=== PATIENT | male | born 1960 | race Two or more races ===

== ENCOUNTER 2022-03-13 17:24 | Inpatient (IN) | payer MEDICAID, OTHER ==
[~2022-03-13] VITALS: Ht 162.6 cm; Wt 68.0 kg
[2022-03-13 18:39] LABS: Basophils # (auto) 0 10 ^3/uL (0-0.2); Basophils % (auto) 0.5 % (0.0-2.0); Eosinophils # (auto) 0.4 10 ^3/uL (0-0.8); Eosinophils % (auto) 5.3 % (0.0-7.0); Hematocrit 37.1 % (41.0-53.0); Lymphocytes # (auto) 1.8 10 ^3/uL (0.4-5.4); Lymphocytes % (auto) 25.9 % (10.0-50.0); Mean Corpuscular Hemoglobin 27.6 pg (28.0-32.0); Mean Corpuscular Hgb Conc. 35.2 g/dL (32.0-36.0); Mean Corpuscular Volume 78.5 fL (80.0-100.0); Monocytes # (auto) 0.4 10 ^3/uL (0-1.3); Neutrophils # (auto) 4.4 10 ^3/uL (1.6-8.6); Neutrophils % (auto) 62.3 % (37.0-80.0); Nucleated Red Blood Cells % 0.1 %; Red Blood Cells 4.72 10^6/uL (4.5-5.90); White Blood Cell 7.1 10^3/uL (4.4-10.8)
[2022-03-13 18:55] LABS: Sodium 135 mmol/L (136-145)
[2022-03-13 19:08] LABS: Albumin 3.4 g/dL (3.4-5.0); Alkaline Phosphatase 137 U/L (45-117); Bilirubin, Total 0.6 mg/dL (0.2-1.0); Calcium 8.5 mg/dL (8.5-10.1); Carbon Dioxide 23 mmol/L (21-32); Cholesterol 246 mg/dL (< 200); GFR African American 79 mL/min; GFR Non-African American 65 mL/min; Glucose 160 mg/dL (74-106); HDL Cholesterol 20 mg/dL (40-59); Triglycerides 2144 mg/dL (< 150)
[2022-03-13 19:55] LABS: Blood Urea Nitrogen 24 mg/dL (7-18)
[2022-03-13 19:56] LABS: Alanine Aminotransferase 40 U/L (16-61); Aspartate Aminotransferase 44 U/L (15-37); Total Protein 7.8 g/dL (6.4-8.2)
[2022-03-13 19:57] LABS: Anion Gap 7 (5-15); Chloride 105 mmol/L (98-107)
[2022-03-13] MEDS ORDERED: TEMAZEPAM 15 MG CAP PO PRN (23:45)
[2022-03-13] MEDS ORDERED: ACETAMINOPHEN 325 MG TAB PO PRN (23:45)
[2022-03-13] MEDS ORDERED: DEXTROSE (50%) 50ML SYRG IV PRN (23:45)
[2022-03-13] MEDS ORDERED: ONDANSETRON HCL 4 MG/2 ML VIAL IV PRN (23:45)
[2022-03-14 02:22] LABS: Urine Bacteria NONE SEEN /hpf (None Seen); Urine Blood Negative /uL (Negative); Urine Specific Gravity 1.015 (1.001-1.035); Urine WBC <1 /hpf (0 - 3)
[2022-03-14 06:40] LABS: Basophils # (auto) 0 10 ^3/uL (0-0.2); Basophils % (auto) 0.7 % (0.0-2.0); Eosinophils # (auto) 0.4 10 ^3/uL (0-0.8); Eosinophils % (auto) 5.9 % (0.0-7.0); Hematocrit 38.1 % (41.0-53.0); Lymphocytes # (auto) 1.5 10 ^3/uL (0.4-5.4); Lymphocytes % (auto) 24.2 % (10.0-50.0); Mean Corpuscular Hgb Conc. 34.1 g/dL (32.0-36.0); Mean Corpuscular Volume 79.2 fL (80.0-100.0); Monocytes # (auto) 0.3 10 ^3/uL (0-1.3); Monocytes % (auto) 5.6 % (0.0-12.0); Neutrophils # (auto) 3.8 10 ^3/uL (1.6-8.6); Neutrophils % (auto) 63.6 % (37.0-80.0); Nucleated Red Blood Cells % 0.1 %; Red Blood Cells 4.81 10^6/uL (4.5-5.90)
[2022-03-14 06:49] LABS: Albumin 3.3 g/dL (3.4-5.0); Calcium 8.3 mg/dL (8.5-10.1); Potassium 3.7 mmol/L (3.5-5.1)
[2022-03-14 06:55] LABS: BUN/Creatinine Ratio 18.5; Bilirubin, Total 0.5 mg/dL (0.2-1.0); Total Protein 7.4 g/dL (6.4-8.2)
[2022-03-14] MEDS: InsuLIN REG 1unit/0.01ml Soln (100units/ml) SC SCH ×3 (07:00→18:10)
[2022-03-14] MEDS ORDERED: LEVOTHYROXINE SODIUM 50 MCG TAB PO SCH (07:00)
[2022-03-14] MEDS: ACCU-CHEK COMFORT CURVE STRIP VI SCH ×3 (07:20→18:10)
[2022-03-14 09:00] VITALS: BP 117/70
[2022-03-14] MEDS ORDERED: LOSARTAN POTASSIUM 50 MG TAB PO SCH (10:00)
[2022-03-14] MEDS ORDERED: PANTOPRAZOLE 40 MG TAB PO SCH (10:00)
[2022-03-14] MEDS ORDERED: CLOPIDOGREL BISULFATE 75 MG TAB PO SCH (10:00)
[2022-03-14] MEDS ORDERED: GEMFIBROZIL 600 MG TAB PO SCH (10:00)
[2022-03-14 13:00] VITALS: BP 132/76
[2022-03-14 15:28] VITALS: BP 132/76
[2022-03-14] MEDS ORDERED: CLOT1SOL6 TOP (15:49)
[2022-03-14] MEDS ORDERED: INSU1INJ19 SC (15:49)
[2022-03-14] MEDS ORDERED: LID35TP TOP (15:49)
[2022-03-14] MEDS ORDERED: CLOP75TA70 PO (15:49)
[2022-03-14] MEDS ORDERED: ATOR-47 PO (15:49)
[2022-03-14] MEDS ORDERED: LOSA-69 PO (15:49)
[2022-03-14] MEDS ORDERED: METF-372 PO (15:49)
[2022-03-14] MEDS ORDERED: LEVO50TA7 PO (15:49)
[2022-03-14] MEDS ORDERED: FENO160T8 PO ×2 (15:49→16:16)
[2022-03-14] MEDS ORDERED: OMEG100078 PO (16:16)
[2022-03-14] MEDS ORDERED: NIAC500T71 PO (16:16)
[2022-03-14 16:59] VITALS: BP 162/80
[2022-03-14 17:46] VITALS: BP 143/67
[2022-03-14] MEDS ORDERED: ATORVASTATIN 20 MG TAB PO SCH (22:00)
[2022-03-15] MEDS ORDERED: PATIENTS OWN MEDICATION (Fenofibrate 160 MG) PO SCH (10:00)
== END 2022-03-14 18:30 | disposition home or self-care (01) | DRG 423 ==
LOC: ER 17:24 → OVERFLOW 23:33 → CENTRAL 03-14 08:23
PROVIDERS: ADMIT Nurse Practitioner; ATTEND Internal Medicine
DX: E78.1 Pure hyperglyceridemia (principal); E03.9 Hypothyroidism, unspecified; E11.9 Type 2 diabetes mellitus without complications; Z20.822 Contact with and (suspected) exposure to COVID-19; E78.00 Pure hypercholesterolemia, unspecified; E78.5 Hyperlipidemia, unspecified; I10 Essential (primary) hypertension; I25.10 Atherosclerotic heart disease of native coronary artery without angina pectoris; Z79.4 Long term (current) use of insulin; Z79.899 Other long term (current) drug therapy; Z95.5 Presence of coronary angioplasty implant and graft
CPT/HCPCS: 36415; 71045; 80053; 80061; 81001; 82962; 83690; 83880; 84484; 85025; 93005; 93306; G0378; J1815

== ENCOUNTER 2022-03-26 19:48 | Emergency (ER) | payer MEDICAID ==
[~2022-03-26] VITALS: Ht 177.8 cm; Wt 72.6 kg
[~2022-03-26 19:48] MED LIST: ATOR-47 PO; CLOP75TA70 PO; CLOT1SOL6 TOP; FENO160T8 PO; INSU1INJ19 SC; LEVO50TA7 PO; LID35TP TOP; LOSA-69 PO; METF-372 PO; NIAC500T71 PO; OMEG100078 PO
[2022-03-26 20:40] LABS: Basophils # (auto) 0 10 ^3/uL (0-0.2); Basophils % (auto) 0.2 % (0.0-2.0); Eosinophils # (auto) 0 10 ^3/uL (0-0.8); Eosinophils % (auto) 0.2 % (0.0-7.0); Lymphocytes # (auto) 0.5 10 ^3/uL (0.4-5.4); Mean Corpuscular Hemoglobin 25.7 pg (28.0-32.0); Monocytes # (auto) 0.2 10 ^3/uL (0-1.3); Neutrophils # (auto) 7.5 10 ^3/uL (1.6-8.6); Red Cell Distribution Width 14.8 % (11.8-14.3); White Blood Cell 8.3 10^3/uL (4.4-10.8)
[2022-03-26 20:42] LABS: Hematocrit 40.6 % (41.0-53.0); Hemoglobin 13.1 g/dL (13.5-17.5); Lymphocytes % (auto) 5.7 % (10.0-50.0); Mean Corpuscular Hgb Conc. 32.2 g/dL (32.0-36.0); Monocytes % (auto) 2.5 % (0.0-12.0); Neutrophils % (auto) 91.4 % (37.0-80.0); Red Blood Cells 5.08 10^6/uL (4.5-5.90)
[2022-03-26 20:57] LABS: Albumin 4.1 g/dL (3.4-5.0); Calcium 8.7 mg/dL (8.5-10.1); Potassium 3.9 mmol/L (3.5-5.1)
[2022-03-26 20:59] LABS: BUN/Creatinine Ratio 15.7
[2022-03-26 21:01] LABS: Total Protein 7.9 g/dL (6.4-8.2)
[2022-03-26] MEDS ORDERED: ACETAMINOPHEN 325 MG TAB PO ONE (22:15)
[2022-03-26] MEDS ORDERED: IOHEXOL 300 MG/ML 100ML BOTTLE IJ ONE (23:20)
[2022-03-26] MEDS ORDERED: SODIUM CHLORIDE 0.9% 1,000 ML IV ONE (23:30)
[2022-03-26 23:42] LABS: Urine Bacteria FEW /hpf (None Seen); Urine Blood Negative /uL (Negative); Urine WBC <1 /hpf (0 - 3)
[2022-03-26 23:43] LABS: Urine Specific Gravity > 1.050 (1.001-1.035)
[2022-03-27] MEDS ORDERED: DOXY-286 PO (02:01)
[2022-03-27 02:07] VITALS: BP 92/58
== END 2022-03-27 02:16 | disposition home or self-care (01) ==
LOC: ER 19:48
DX: N41.9 Inflammatory disease of prostate, unspecified (principal); Z20.822 Contact with and (suspected) exposure to COVID-19
CPT/HCPCS: 36415; 74177; 80053; 81001; 84484; 85025; 87426; 87804; 93005; 99285; J7030; Q9967

== ENCOUNTER 2022-08-13 09:21 | Inpatient (IN) | payer MEDICAID ==
[~2022-08-13] VITALS: Ht 162.6 cm; Wt 68.7 kg
[~2022-08-13 09:21] MED LIST changes: +DOXY-286 PO
[2022-08-13 10:30] LABS: Urine Bacteria NONE SEEN /hpf (None Seen); Urine Blood Negative /uL (Negative); Urine Specific Gravity 1.006 (1.001-1.035); Urine WBC 1 /hpf (0 - 3)
[2022-08-13 10:51] LABS: Basophils # (auto) 0 10 ^3/uL (0-0.2); Basophils % (auto) 0.5 % (0.0-2.0); Eosinophils # (auto) 0.2 10 ^3/uL (0-0.8); Hematocrit 43.7 % (41.0-53.0); Hemoglobin 14.5 g/dL (13.5-17.5); Lymphocytes # (auto) 1.3 10 ^3/uL (0.4-5.4); Mean Corpuscular Hemoglobin 27.5 pg (28.0-32.0); Mean Corpuscular Hgb Conc. 33.2 g/dL (32.0-36.0); Mean Corpuscular Volume 82.7 fL (80.0-100.0); Monocytes # (auto) 0.4 10 ^3/uL (0-1.3); Monocytes % (auto) 4.9 % (0.0-12.0); Neutrophils # (auto) 6.2 10 ^3/uL (1.6-8.6); Neutrophils % (auto) 76.6 % (37.0-80.0); Red Blood Cells 5.28 10^6/uL (4.5-5.90); Red Cell Distribution Width 14.1 % (11.8-14.3)
[2022-08-13 11:22] LABS: BUN/Creatinine Ratio 15.2; Bilirubin, Total 0.6 mg/dL (0.2-1.0); Calcium 9.3 mg/dL (8.5-10.1); Total Protein 8.3 g/dL (6.4-8.2)
[2022-08-13] MEDS ORDERED: NITROGLYCERIN 0.4 MG SL TAB SL PRN (15:00)
[2022-08-13] MEDS ORDERED: DEXTROSE (50%) 50ML SYRG IV PRN (15:00)
[2022-08-13] MEDS ORDERED: PANTOPRAZOLE 40 MG/10 ML VIAL INJ IV ONE (15:00)
[2022-08-13] MEDS ORDERED: LACTULOSE 20Gm/30ML SOLN PO PRN (15:00)
[2022-08-13] MEDS ORDERED: ACETAMINOPHEN 325 MG TAB PO PRN (15:00)
[2022-08-13] MEDS ORDERED: LACTULOSE 20Gm/30ML SOLN PO ONE (15:00)
[2022-08-13] MEDS ORDERED: MORPHINE SULFATE INJ 2 MG/ml SYRG IV PRN (15:00)
[2022-08-13 15:31] LABS: Cholesterol 85 mg/dL (< 200); Triglycerides 215 mg/dL (< 150)
[2022-08-13 15:35] LABS: HDL Cholesterol 27 mg/dL (40-59); LDL Cholesterol 41 mg/dL (< 100)
[2022-08-13] MEDS: InsuLIN REG 1unit/0.01ml Soln (100units/ml) SC SCH ×2 (17:00→22:00)
[2022-08-13] MEDS: ACCU-CHEK COMFORT CURVE STRIP VI SCH ×2 (17:10→22:31)
[2022-08-13] MEDS: HYDROcodone-ACET 5/325MG TAB PO PRN (20:48)
[2022-08-13] MEDS ORDERED: PATIENTS OWN MEDICATION (Atorvastatin Calcium 1 TAB) PO SCH (22:00)
[2022-08-13 23:30] VITALS: BP 156/74
[2022-08-14] VITALS (8 sets, daily range): BP systolic 124–156; BP diastolic 69–88
[2022-08-14] MEDS ORDERED: ASPI-543 PO (03:21)
[2022-08-14 06:14] LABS: Basophils # (auto) 0 10 ^3/uL (0-0.2); Basophils % (auto) 0.5 % (0.0-2.0); Eosinophils # (auto) 0.2 10 ^3/uL (0-0.8); Hematocrit 38.7 % (41.0-53.0); Hemoglobin 13.1 g/dL (13.5-17.5); Lymphocytes % (auto) 18.1 % (10.0-50.0); Mean Corpuscular Hemoglobin 27.7 pg (28.0-32.0); Mean Corpuscular Hgb Conc. 33.9 g/dL (32.0-36.0); Mean Corpuscular Volume 81.9 fL (80.0-100.0); Monocytes # (auto) 0.4 10 ^3/uL (0-1.3); Monocytes % (auto) 7.8 % (0.0-12.0); Neutrophils # (auto) 3.7 10 ^3/uL (1.6-8.6); Neutrophils % (auto) 69.6 % (37.0-80.0); Red Blood Cells 4.72 10^6/uL (4.5-5.90); Red Cell Distribution Width 13.9 % (11.8-14.3); White Blood Cell 5.4 10^3/uL (4.4-10.8)
[2022-08-14] MEDS: LEVOTHYROXINE SODIUM 50 MCG TAB PO SCH (06:35)
[2022-08-14] MEDS: ACCU-CHEK COMFORT CURVE STRIP VI SCH ×4 (06:35→22:11)
[2022-08-14 06:36] LABS: BUN/Creatinine Ratio 19.6; Calcium 8.8 mg/dL (8.5-10.1); Potassium 3.5 mmol/L (3.5-5.1)
[2022-08-14] MEDS: InsuLIN REG 1unit/0.01ml Soln (100units/ml) SC SCH ×4 (07:00→22:13)
[2022-08-14] MEDS: Fenofibrate 160MG TABLET PO SCH (10:00)
[2022-08-14] MEDS: MORPHINE SULFATE INJ 2 MG/ml SYRG IV PRN ×2 (10:07→16:20)
[2022-08-14] MEDS: PANTOPRAZOLE 40 MG/10 ML VIAL INJ IV SCH (10:07)
[2022-08-14] MEDS: HYDROcodone-ACET 5/325MG TAB PO PRN (13:07)
[2022-08-14] MEDS: SOD CHL 0.9%/ KCL 20MEQ 1,000 ML IV SCH (14:47)
[2022-08-14] MEDS: DOCUSATE SOD 100 MG CAP PO SCH (22:08)
[2022-08-14] MEDS: ATORVASTATIN 20 MG TAB PO SCH (22:10)
[2022-08-15] MEDS: SOD CHL 0.9%/ KCL 20MEQ 1,000 ML IV SCH ×2 (03:35→06:35)
[2022-08-15 05:00] VITALS: BP 129/68
[2022-08-15] MEDS: ACCU-CHEK COMFORT CURVE STRIP VI SCH ×4 (06:34→21:27)
[2022-08-15] MEDS: InsuLIN REG 1unit/0.01ml Soln (100units/ml) SC SCH ×4 (06:35→21:32)
[2022-08-15] MEDS: LEVOTHYROXINE SODIUM 50 MCG TAB PO SCH (06:35)
[2022-08-15] MEDS: MORPHINE SULFATE INJ 2 MG/ml SYRG IV PRN (06:46)
[2022-08-15 09:25] VITALS: BP 134/64
[2022-08-15] MEDS: PANTOPRAZOLE 40 MG/10 ML VIAL INJ IV SCH (09:37)
[2022-08-15] MEDS: LOSARTAN POTASSIUM 50 MG TAB PO SCH (09:37)
[2022-08-15] MEDS: Fenofibrate 160MG TABLET PO SCH (10:00)
[2022-08-15] MEDS: DOCUSATE SOD 100 MG CAP PO SCH ×2 (10:00→21:21)
[2022-08-15] MEDS ORDERED: ASPirin-EC 81 mg tab PO SCH (10:00)
[2022-08-15 13:00] VITALS: BP 146/77
[2022-08-15] MEDS ORDERED: ASPirin-EC 81 mg tab PO ONE (15:30)
[2022-08-15 17:00] VITALS: BP 158/73
[2022-08-15 17:23] LABS: INR 1.13 (0.9-1.15); Partial Thromboplastin Time 27.6 sec (24.6-33.4)
[2022-08-15 17:24] LABS: BUN/Creatinine Ratio 8.7; Calcium 9.2 mg/dL (8.5-10.1); Potassium 3.8 mmol/L (3.5-5.1)
[2022-08-15 20:00] VITALS: BP 145/74
[2022-08-15] MEDS: ATORVASTATIN 20 MG TAB PO SCH (21:21)
[2022-08-16 05:00] VITALS: BP 139/75
[2022-08-16] MEDS: SOD CHL 0.9%/ KCL 20MEQ 1,000 ML IV SCH ×2 (06:31→19:35)
[2022-08-16] MEDS: LEVOTHYROXINE SODIUM 50 MCG TAB PO SCH (06:32)
[2022-08-16] MEDS: ACCU-CHEK COMFORT CURVE STRIP VI SCH ×4 (06:37→21:43)
[2022-08-16] MEDS: InsuLIN REG 1unit/0.01ml Soln (100units/ml) SC SCH ×4 (06:38→21:47)
[2022-08-16] MEDS ORDERED: ceFAZolin 1GM VL ONE (08:05)
[2022-08-16] MEDS ORDERED: LIDOCAINE 2% JELLY 11ml (GLYDO) ONE (08:15)
[2022-08-16] MEDS ORDERED: MIDAZOLAM HCL 2MG/2ML 2ml VIAL (1mg/ml) ONE (08:21)
[2022-08-16] MEDS ORDERED: fentaNYL CITRATE 100 MCG/2 ML VL ONE (08:21)
[2022-08-16] MEDS ORDERED: MEPERIDINE HCL (50 MG/ML) 1 ML VIAL ONE (08:21)
[2022-08-16 09:09] VITALS: BP 128/81
[2022-08-16] MEDS ORDERED: DexAMETHasone SOD PHOS 10MG/1ML VIAL INJ ONE (09:20)
[2022-08-16] MEDS ORDERED: ONDANSETRON HCL 4 MG/2 ML VIAL ONE (09:33)
[2022-08-16] MEDS ORDERED: PROPOFOL 10 MG/ML 20 ML IV ONE (09:33)
[2022-08-16] MEDS: DOCUSATE SOD 100 MG CAP PO SCH ×2 (10:00→21:51)
[2022-08-16] MEDS: ASPirin-EC 81 mg tab PO SCH (10:00)
[2022-08-16] MEDS: PANTOPRAZOLE 40 MG/10 ML VIAL INJ IV SCH (10:00)
[2022-08-16] MEDS: Fenofibrate 160MG TABLET PO SCH (10:00)
[2022-08-16] MEDS ORDERED: ONDANSETRON HCL 4 MG/2 ML VIAL IV PRN (10:15)
[2022-08-16] MEDS ORDERED: LABETALOL HCL 5 MG/ML 4ML SYRINGE IV PRN (10:15)
[2022-08-16] MEDS ORDERED: HYDROmorphone HCL 2 MG/ML VL/or syr IV PRN (10:15)
[2022-08-16] MEDS ORDERED: MIDAZOLAM HCL 2MG/2ML 2ml VIAL (1mg/ml) IV PRN (10:15)
[2022-08-16] MEDS ORDERED: ACCU-CHEK COMFORT CURVE STRIP VI ONE (10:15)
[2022-08-16] MEDS ORDERED: MORPHINE SULFATE 4 MG/ML SYR/VIAL IV PRN (10:15)
[2022-08-16] MEDS ORDERED: ePHEDrine SULFATE 50 MG/ML AMP IV PRN (10:15)
[2022-08-16] MEDS ORDERED: HYDROmorphone HCL 2 MG/ML VL/or syr IV ONE ×2 (10:58→11:09)
[2022-08-16] MEDS: LOSARTAN POTASSIUM 50 MG TAB PO SCH (12:22)
[2022-08-16] MEDS: HYDROcodone-ACET 5/325MG TAB PO PRN (12:23)
[2022-08-16 12:50] VITALS: BP 140/69
[2022-08-16 17:14] VITALS: BP 136/68
[2022-08-16 20:00] VITALS: BP 141/71
[2022-08-16] MEDS: MORPHINE SULFATE INJ 2 MG/ml SYRG IV PRN (21:00)
[2022-08-16] MEDS: ATORVASTATIN 20 MG TAB PO SCH (21:50)
[2022-08-17 05:00] VITALS: BP 125/61
[2022-08-17 05:04] LABS: Basophils # (auto) 0 10 ^3/uL (0-0.2); Basophils % (auto) 0.1 % (0.0-2.0); Eosinophils # (auto) 0 10 ^3/uL (0-0.8); Hematocrit 37.7 % (41.0-53.0); Hemoglobin 12.5 g/dL (13.5-17.5); Lymphocytes # (auto) 0.7 10 ^3/uL (0.4-5.4); Lymphocytes % (auto) 7.2 % (10.0-50.0); Mean Corpuscular Hemoglobin 27.2 pg (28.0-32.0); Mean Corpuscular Hgb Conc. 33.2 g/dL (32.0-36.0); Mean Corpuscular Volume 82.2 fL (80.0-100.0); Monocytes # (auto) 0.7 10 ^3/uL (0-1.3); Monocytes % (auto) 6.5 % (0.0-12.0); Neutrophils # (auto) 8.8 10 ^3/uL (1.6-8.6); Neutrophils % (auto) 86.2 % (37.0-80.0); Red Blood Cells 4.59 10^6/uL (4.5-5.90); Red Cell Distribution Width 13.7 % (11.8-14.3); White Blood Cell 10.2 10^3/uL (4.4-10.8)
[2022-08-17 05:22] LABS: Potassium 4.2 mmol/L (3.5-5.1)
[2022-08-17 05:30] LABS: BUN/Creatinine Ratio 15.1
[2022-08-17] MEDS: ACCU-CHEK COMFORT CURVE STRIP VI SCH ×2 (06:43→11:52)
[2022-08-17] MEDS: LEVOTHYROXINE SODIUM 50 MCG TAB PO SCH (06:44)
[2022-08-17] MEDS: InsuLIN REG 1unit/0.01ml Soln (100units/ml) SC SCH ×2 (06:44→11:53)
[2022-08-17 08:49] VITALS: BP 123/63
[2022-08-17] MEDS: ASPirin-EC 81 mg tab PO SCH (09:34)
[2022-08-17] MEDS: LOSARTAN POTASSIUM 50 MG TAB PO SCH (09:34)
[2022-08-17] MEDS: DOCUSATE SOD 100 MG CAP PO SCH (09:35)
[2022-08-17] MEDS: PANTOPRAZOLE 40 MG/10 ML VIAL INJ IV SCH (09:36)
[2022-08-17] MEDS: SOD CHL 0.9%/ KCL 20MEQ 1,000 ML IV SCH (09:37)
[2022-08-17] MEDS ORDERED: HYDR-4902 PO (10:00)
[2022-08-17] MEDS: Fenofibrate 160MG TABLET PO SCH (10:00)
[2022-08-17] MEDS: MORPHINE SULFATE INJ 2 MG/ml SYRG IV PRN (11:25)
[2022-08-17 12:44] VITALS: BP 153/76
[2022-08-17 14:08] VITALS: BP 141/74
== END 2022-08-17 15:50 | disposition home or self-care (01) | DRG 228 ==
LOC: ER 09:21 → OVERFLOW 14:49 → CENTRAL 22:50
PROVIDERS: ADMIT Registered Nurse; ATTEND Nurse Practitioner Acute Care
PROC: 0YQ60ZZ Repair Left Inguinal Region, Open Approach (ICD-10-PCS; principal; 2022-08-16 08:24)
DX: K40.90 Unilateral inguinal hernia, without obstruction or gangrene, not specified as recurrent (principal); K80.50 Calculus of bile duct without cholangitis or cholecystitis without obstruction; E11.9 Type 2 diabetes mellitus without complications; I10 Essential (primary) hypertension; Z20.822 Contact with and (suspected) exposure to COVID-19; I25.10 Atherosclerotic heart disease of native coronary artery without angina pectoris; N41.9 Inflammatory disease of prostate, unspecified; K59.00 Constipation, unspecified; E78.5 Hyperlipidemia, unspecified; Z79.4 Long term (current) use of insulin; Z79.899 Other long term (current) drug therapy; Z82.49 Family history of ischemic heart disease and other diseases of the circulatory system; Z83.3 Family history of diabetes mellitus; Z95.5 Presence of coronary angioplasty implant and graft
CPT/HCPCS: 36415; 74176; 80048; 80053; 80061; 81001; 82962; 83036; 84443; 85025; 85610; 85730; 86850; 86900; 86901; 87426; 88302; 93005; 96374; C9113; G0378; J0690; J1100; J1815; J2250; J2405; J2704